=== PATIENT | female | born 1945 | race Caucasian/White ===

== ENCOUNTER 2024-12-12 12:13 | Emergency (ER) | payer OTHER ==
[~2024-12-12] VITALS: Ht 160 cm; Wt 68.8 kg
[2024-12-12 12:15] VITALS: BP 158/89; PULSE 90; RESP 18; TEMP 99.4; O2SAT 95
--- NOTE | 2024-12-12 12:32 | ED.PDOC ---
History of Present Illness HPI Comments 79 y/o F presents with c/c of foreign body in left ear. Patient reports the tip of her hearing aid getting lodged in her left ear since 12/10/24. Denies any pain or discharge from ear. Vital signs were stable. Chief Complaint: Foreign Body Time Seen by MD: 12:20 Reviewed Notes: Nurses Notes, Medications, Allergies Allergies: Coded Allergies: Penicillins (Verified Allergy, Unknown, 12/12/24) Information Source: Patient Mode of Arrival: walker Severity: Mild Timing: Days Duration: Since onset Prehospital treatment: None Past Medical History PAST MEDICAL HISTORY: Denies Past Medical History (Other): Patient utilizes hearing aids due to hearing deficiency. 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 History Family History Family History: Reviewed,noncontributory to illness, No family hx of Cancer, No family hx of DM, No family hx of Heart adonis, No family hx of HTN, No family hx ofKidney adonis, No family hx of Liver adonis, No family hx of Lung adonis, No family hx of Stroke Social History Smoker: Non-Smoker Alcohol: Denies ETOH Use Drugs: Denies Drug Use Lives In: Home Constitutional: denies: chills, diaphoresis, fatigue, fever, malaise, sweats, weakness, others EENTM: reports: others (Left ear foreign body); denies: blurred vision, double vision, ear bleeding, ear discharge, ear drainage, ear pain, ear ringing, eye pain, eye redness, hearing loss, mouth pain, mouth swelling, nasal discharge, nose bleeding, nose congestion, nose pain, photophobia, tearing, throat pain, throat swelling, voice changes Respiratory: denies: cough, hemoptysis, orthopnea, SOB at rest, shortness of breath, SOB with excertion, stridor, wheezing, others Cardiovascular: denies: chest pain, dizzy spells, diaphoresis, Dyspnea on exertion, edema, irregular heart beat, left arm pain, lightheadedness, palpitations, PND, syncope, others Gastrointestinal: denies: abdomen distended, abdominal pain, blood streaked bowels, constipated, diarrhea, dysphagia, difficulty swallowing, hematemesis, melena, nausea, poor appetite, poor fluid intake, rectal bleeding, rectal pain, vomiting, others Genitourinary: denies: abnormal vagina bleeding, burning, dyspareunia, dysuria, flank pain, frequency, hematuria, incontinence, pain, , vagina discharge, urgency, others Neurological: denies: dizziness, fainting, headache, left sided numbness, left sided weakness, numbness, paresthesia, pre-existing deficit, right sided numbness, right sided weakness, seizure, speech problems, tingling, tremors, weakness, others Musculoskeletal: denies: back pain, gout, joint pain, joint swelling, muscle pain, muscle stiffness, neck pain, others Integumetry: denies: bruises, change in color, change in hair/nails, dryness, laceration, lesions, lumps, rash, wounds, others Allergic/Immunocompromised: denies: Difficulty Healing, Frequent Infections, Hives, Itching, others Hematologic/Lymphatic: denies: anemia, blood clots, easy bleeding, easy bruising, swollen glands, others Endocrine: denies: excessive hunger, excessive sweating, excessive thirst, excessive urination, flushing, intolerance to cold, intolerance to heat, unexplained weight gain, unexplained weight loss, others Psychiatric: denies: anxiety, bipolar disorder, depression, hopeless, panic disorder, schizophrenia, sleepless, suicidal, others All Other Systems: Reviewed and Negative (Comprehensive systems review obtained and negative except for what is stated in the HPI.) Physical Exam General Appearance: No Apparent Distress (Patient was in no distress.), Normal HEENT: Pharynx Normal, TMs Normal, Other (Patient has a hearing aid removal tip lodged in her left ear canal.) Neck: Full Range of Motion, Non-Tender, Normal, Normal Inspection Respiratory: Chest Non-Tender, Lungs Clear, No Accessory Muscle Use, No Respiratory Distress, Normal Breath Sounds Cardiovascular: No Edema, No JVD, No Murmur, No Gallop, Normal Peripheral Pulses, Regular Rate/Rhythm Breast Exam: Deferred Gastrointestinal: No Organomegaly, Non Tender, No Pulsatile Mass, Normal Bowel Sounds, Soft Genitalia: Deferred Pelvic: Deferred Rectal: Deferred Extremities: No calf tenderness, Normal inspection Neurologic: Alert Cerebellar Function: NOT DONE Reflexes: NOT DONE Skin: Dry, Normal Color, Warm Lymphatic: No Adenopathy Was a procedure done? Was a procedure done?: Yes Sedation Sedation?: No Foreign Body Removal Foreign body in: Ear (left ) Anesthetic: Nothing Prep: Prep (tweezers) Procedure: Identified (hearing aid ear tip), Removed Informed consent obtained: Yes Risks/benefits/alt described: Yes Other Procedure Procedure Foreign body was identified in left ear canal. Tip removed without event. Patient was thankful. Differential Dx Considerations may include: foreign body in left ear canal X-Ray, Labs, Meds, VS Vital Signs Date Time Temp Pulse Resp B/P (MAP) Pulse Ox O2 Delivery O2 Flow Rate FiO2 12/12/24 12:15 99.4 90 18 158/89 95 99.4 X-Ray, Labs, Meds, VS Comment Foreign body was removed without event. Patient will follow up with her provider for hearing aid maintenance. Time of 1ST Reevaluation: 12:40 Reevaluation 1ST: Improved Consultation: PCP Patient Education/Counseling: Diagnosis, Treatment, Need For Follow Up Family Education/Counseling: Diagnosis, Treatment, No Family Present SEPSIS Sepsis Screen Date sepsis recognized/suspect: Dec 12, 2024 Time Sepsis recognized/suspect: 1217 Recent Procedure: No On Antibiotic Therapy: No Respiratory Rate >20: No Heart Rate >90: Yes Temp<36 C (96.8 F) or >38.3 C: No SBP <90 or MAP <65 mmHG: No New Acute Mental Status Change: No Is the patient on CPAP, BIPAP,: No Vital Signs Date Time Temp Pulse Resp B/P (MAP) Pulse Ox O2 Delivery O2 Flow Rate FiO2 12/12/24 12:15 99.4 90 18 158/89 95 99.4 Departure 1 Departure Time of Disposition: 12:40 Impression: Primary Impression: Foreign body in ear Disposition: HOME / SELF CARE / HOMELESS Condition: Stable Additional Instructions: Advised patient follow up with the hearing aid supplier for discussions related to more secure tips. Discharged With: Self, Friend Critical Care Note Critical Care Time?: No Stability Stability form required: No Heart Score Heart Score: Heart Score Response (Comments) Value History N/A 0 EKG N/A 0 Age N/A 0 Risk Factors N/A 0 Troponin N/A 0 Total 0 I personally scribed for LEON HOPPER PAC ([email or web address]) on 12/12/24 at 12:32. Electronically submitted by Wellington Avalos ([email or web address]). I personally scribed for LEON HOPPER PAC ([email or web address]) on 12/12/24 at 12:33. Electronically submitted by Wellington Avalos ([email or web address]). [facility] Dec 12, 2024 12:32
== END 2024-12-12 12:46 | disposition home or self-care (01) ==
LOC: ER 12:13
DX: T16.2XXA Foreign body in left ear, initial encounter (principal); Z88.0 Allergy status to penicillin; W44.G1XA Audio device entering into or through a natural orifice, initial encounter; Y93.89 Activity, other specified; Y92.89 Other specified places as the place of occurrence of the external cause; Y99.8 Other external cause status
CPT/HCPCS: 69200